=== PATIENT | male | born 1955 | race Caucasian/White ===

== ENCOUNTER 2018-10-02 09:54 | Observation (INO) ==
--- NOTE | 2018-10-02 10:07 | Anesthesia Evaluation PreOp ---
Date of Encounter: 10/02/18 Time of Encounter: 10:05 - Past History Planned Operation: Left Robotic Laproscopic Inguinal Hernia Cardiac History: HTN Pulmonary History: Denies Any Significant HX ACETYLENE TORCH BURNER History: Other (Depression/Anxiety) Other Medical History: Denies Any Significant HX, Thyroid (Hypo), Other (Obese, Chronic Pain) Anesthesia History: No Prior Anesthetic Complications, Past Anesthesia (loop recorder, pain pump and revision, GB, lumbar fusion, Hernia,) Alcohol Use: none Drug use: none Medications and Allergies Buspirone HCl [Buspar] 10 mg PO BID 10/02/18 [History] Gabapentin [Neurontin] 300 mg PO DAILY 10/02/18 [History] HydrOXYzine 10 mg PO Q8H PRN 10/02/18 [History] Levothyroxine Sodium [Levoxyl] 50 mcg PO DAILY 10/02/18 [History] Losartan Potassium 100 mg PO DAILY 10/02/18 [History] Meloxicam 7.5 mg PO BID 10/02/18 [History] Morphine Sulfate/Pf [Morphine IntraThecdal Pump] 1 each IT AD 10/02/18 [History] Pramipexole Di-HCl [Pramipexole Dihydrochloride] 0.75 mg PO HS 10/02/18 [History] Allergy/AdvReac Type Severity Reaction Status Date / Time bacitracin Allergy Hives Verified 10/02/18 10:21 [From Neosporin ([id number])] lisinopril Allergy Rash Verified 10/02/18 10:21 Neomycin Allergy Hives Verified 10/02/18 10:21 [From Neosporin ([id number])] polymyxin B Allergy Hives Verified 10/02/18 10:21 [From Neosporin ([id number])] ropinirole [From Requip] Allergy Hives Verified 10/02/18 10:21 Latex, Natural Rubber AdvReac Rash Verified 10/02/18 10:21 - Meds/Allergy Pre-op Review Medications Reviewed: Yes Allergies Reviewed: Yes Beta Blockers on Current Med List: No Anesthesia Results - Labs Laboratory Tests 06/24/17 06/24/17 09/22/18 07:25 07:26 13:42 WBC 6.5 Hgb 14.3 Hct 42.7 Plt Count 196 INR 1.0 Sodium 140 Potassium Chloride 100 Carbon Dioxide 33 H BUN 14 Creatinine 0.93 09/22/18 13:42 WBC Hgb Hct Plt Count INR Sodium Potassium 3.9 Chloride Carbon Dioxide BUN Creatinine - Imaging EKG: report reviewed (SR) Additional studies: Echocardiogram Name: Ishmael Alcaraz Date of Study: 06/24/2017 Impressions: LVEF 60-65%. Normal LV chamber size, wall thickness and function. Mild left ventricular diastolic dysfunction. Normal right ventricular structure and function. No evidence of pulmonary hypertension. No significant valvular dysfunction. Anesthesia Exam O2 Sat Height 1.75 m Weight 97.522 kg O2 Sat by Pulse Oximetry 97 Vital Signs Temp Pulse Resp BP Pulse Ox 98.6 F 63 18 151/77 97 10/02/18 10:10 10/02/18 10:10 10/02/18 10:10 10/02/18 10:10 10/02/18 10:10 NPO (# of Hours): > 8 hrs Pain Scale: 0 Pain Scale Used: Numeric (1 - 10) - HEENT Pupil (Motor): Pupils equal, EOMI Mallampati: III Teeth: Normal Oral Opening: Greater than 3 - ACETYLENE TORCH BURNER LOC: Oriented ACETYLENE TORCH BURNER Motor: Normal RUE, Normal LUE, Normal RLE, Normal LLE, Normal Face ACETYLENE TORCH BURNER Sensory: Normal: RUE, LUE, RLE, LLE, Face - Cardiac Rhythm: Regular Murmur: None JVD: No Carotid Bruit: No - Pulmonary Breath Sounds: bilateral Clear Respiratory Effort: Symmetrical Anesthesia Assess/Plan ASA Score: 3 Level of consciousness: Cooperative Anesthetic Plan: General Autologous Blood: Yes Monitoring Plan: Standard Monitors Recovery Plan: PACU
[2018-10-02] MEDS ORDERED: CeFAZolin Syr 2,000MG/20 ML 2,000 MG/20 ML SYRINGE IVPB ONE (10:12)
[2018-10-02] MEDS ORDERED: Ringers Solution, Lactated 1,000 ML IVC SCH ×2 (10:15→14:15)
[2018-10-02] MEDS ORDERED: Albuterol 2.5 MG/3 ML NEBULIZER IH ONE (10:31)
[2018-10-02] MEDS ORDERED: *HR* HYDROmorphone (PF) 1 MG/ML SYRINGE IVP PRN (10:31)
[2018-10-02] MEDS ORDERED: Ondansetron 4 MG/2 ML VIAL IVP ONE (10:31)
[2018-10-02] MEDS ORDERED: *HR* Promethazine 25 MG/ML VIAL IVP PRN ×3 (10:31→15:11)
[2018-10-02] MEDS ORDERED: *HR* Labetalol 20 MG/4 ML SYRINGE IVP PRN (10:31)
[2018-10-02] MEDS ORDERED: *HR* OxyCODONE Immed Rel 5 MG TABLET PO PRN (10:31)
[2018-10-02] MEDS ORDERED: Lidocaine -MPF 2% 2 ML VIAL ONE (11:25)
[2018-10-02] MEDS ORDERED: *HR* Rocuronium Bromide 50 MG/5 ML VIAL ONE (11:25)
[2018-10-02] MEDS ORDERED: *HR* Midazolam HCl 2 MG/2 ML VIAL ONE (11:25)
[2018-10-02] MEDS ORDERED: *HR* FentaNYL (PF) 100 MCG/2 ML VIAL ONE (11:25)
[2018-10-02] MEDS ORDERED: *HR* Propofol 200 MG/20 ML VIAL IVP ONE (11:25)
[2018-10-02] MEDS ORDERED: Acetaminophen IV 1,000 MG/100 ML INFUS..BTL ONE (11:31)
--- NOTE | 2018-10-02 11:41 | History & Physical Report ---
Date of Encounter: 10/02/18 Time of Encounter: 11:41 24 Hour HP Update - Instructions Instructions: If the History and Physical is less than 30 days old and was completed prior to A.M. admission and or procedure and has NOT been updated on calendar day of procedure please complete this update prior to performing procedure. - Update Patient reports changes in Medical Condition: No Changes in examination, assessment, or condition: No Changes in Medication: No Surgery Remains Indicated: Yes Consent for Planned Operative Procedure(s) Verified: Yes - Pre-Operative Checklist Prophylactic Antibiotic Ordered: Yes Home Medications Include Beta Clementina: No Is VTE Prophylaxis Indicated?: Yes
[2018-10-02] MEDS ORDERED: Dexamethasone 4 MG/ML VIAL ONE (12:06)
[2018-10-02] MEDS ORDERED: Ondansetron 4 MG/2 ML VIAL ONE (12:06)
[2018-10-02] MEDS ORDERED: Ketorolac 30 MG/ML VIAL ONE (12:11)
[2018-10-02] MEDS ORDERED: Neostigmine Methylsulfate 3 MG/3 ML SYRINGE ONE (12:11)
[2018-10-02] MEDS ORDERED: EPHEDrine 50 MG/ML VIAL ONE (12:13)
[2018-10-02] MEDS ORDERED: Piperacillin/Tazobactam 3.375 GM in 0.9 % Sodium Chloride Mini Bag 100 ML IVPB ONE (13:48)
[2018-10-02] MEDS ORDERED: Ondansetron 4 MG/2 ML VIAL IVP PRN ×2 (14:15→15:11)
[2018-10-02] MEDS ORDERED: Naloxone 0.4 MG/ML INJ IVP PRN ×2 (14:15→15:11)
[2018-10-02] MEDS ORDERED: *HR* OxyCODONE/APAP 5/325 TABLET PO PRN ×2 (14:18→15:11)
[2018-10-02] MEDS ORDERED: OXYCODONE Oral CONC 10 MG/0.5 ML ORAL.SYG SL PRN ×2 (14:18→15:11)
--- NOTE | 2018-10-02 14:22 | Operative Note ---
Date of procedure: 10/02/18 Pre-op diagnosis: left inguinal hernia Post-op diagnosis: same (direct and indirect, small bowel enterotomy) Procedure: Robotic repair left inguinal indirect and direct inguinal hernias with mesh repair small bowel enterotomy Anesthesia: MARRY, local Surgeon: Carla Hall Was there an finance assistant present: Yes Administration Intern: Pretty Espino Estimated blood loss (cc): 5 Specimen: none Condition: stable Disposition: PACU Procedure in Detail: Patient was brought to the operating suite and placed supine on the operating table. Sign in was performed and everyone was in agreement. Anesthesia was induced and patient was endotracheally intubated by anesthesia without incident. The bilateral arms were tucked at his side. His bilateral groin and abdomen was shaved. The bed was turned to the right ~15 degrees at the patients feet. The abdomen, bilateral groin, penis, and scrotum were prepped and draped in the usual sterile fashion. Timeout was performed again everyone was in agreement. A stab incision in the left upper quadrant was made through the skin with an 11 blade. Veress needle was placed in this and a water drop test confirmed placement and the abdomen was insufflated. We then entered the abdomen with a 5 mm 0 degree laparoscope and a 5 mm trocar in the left upper quadrant after first incising the skin with an 11 blade. The area under entry was visualized, there was no obvious bowel injury and no bleeding was present. We placed a 12 mm port under direct visualization in the subxiphoid position after first incising the skin with an 11 blade. We then placed a right upper quadrant 8 mm port under direct visualization after first incising the skin with an 11 blade. The laparoscope was placed through this and the left upper quadrant 5 mm port site was exchanged for the 8 mm port site. Patient was placed in Trendelenburg position. The robot was brought over the patient's left hip and all port sites were docked. Using robotic Caudie grasper and heated scissors an opening was made in the peritoneum medially to laterally in the left lower quadrant abdominal wall. Using gentle blunt dissection the peritoneal flap was created in a medial to lateral direction first locating and exposing the pubic tubercle. The patient had a large direct and smaller indirect inguinal fat containing hernias. The patients hernia sac was reduced with the robotic Caudie grasper and the heated scissors. The hernia sac was taken off the spermatic cord with gently blunt dissection with the scissors. A large piece of cord lipoma was dissected free from the hernia with heated scissors and placed on the small addison wel. Once an appropriate area was dissected and exposed in the retroperitoneum a trimmed 10 x 15 Progrip mesh was placed into the abdominal cavity along with a 0 Vicryl and a 2-0 Vicryl absorbable V-lock stitches. The mesh was placed in the left groin and secured with 2 separate 0 Vicryl interrupted stitches superiolaterally and at the pubic tubercle. The a 2-0 V-lock running stitch was used to reapproximate the peritoneal flap. A hole in the peritoneal was closed with a figure of eight 2-0 vicryl. The previously dissected fat was grasped with the needle school bus driver/teacher assistant and the corner of the needle school bus driver/teacher assistant caught the edge of the small bowel. There was a small enterotomy in the small bowel. The enterotomy was repaired in two layers first with a 3-0 vicryl figure of eight stitch then 3-0 silk lembert stitches. There was no leakage of succus or contamination. The All needles were removed from the peritoneal cavity. The previously dissected fat was removed with a laparoscopic endocatch bag. The insufflation was evacuated and all trocoars were removed. The 12 mm port site was closed at the abdominal wall with an 0 Vicryl [id number] stitch. 30 mL of 0.5% Marcaine was injected subcutaneously at the 3 port sites. The skin at the two 8 mm port sites was closed with a 4-0 Monocryl running subcuticular stitch. The skin at the 12 mm port site was closed with a 4-0 Monocryl running subcuticular stitch. Steri-Strips were applied to the wounds. The patient tolerated the procedure well. He was extubated in the OR by anesthesia. He was taken to PACU in stable condition after all lap and instrument counts were correct at the end of the case.
[2018-10-02] MEDS ORDERED: [UNRECOGNIZED DRUG - OTHER] IT SCH (14:30)
--- NOTE | 2018-10-02 14:56 | Anesthesia Evaluation Post Op ---
Date of Encounter: 10/02/18 Time of Encounter: 14:50 - Vital Signs Vital Signs: Vital Signs/O2 Sat/Glucose, Most Current Temp Pulse Resp BP Pulse Ox 10/02/18 14:47 66 14 138/75 94 10/02/18 14:37 64 14 137/70 96 10/02/18 14:27 97.9 F 81 16 141/81 99 - Lungs Lungs: Clear Ascult./Percussion - Airway Airway: Non-obstructed - Cardiovascular Regular Rate - Mental Status Mental Status: Alert & Oriented, Answers Appropriately - Pain Pain Scale: 0 - Nausea Vomiting Nausea Vomiting: Not Present - Hydration Hydration: Ice chips, Has not voided - Discharge PostOp Status: Transfer Patient to floor (no anesthesia complications VSS)
[2018-10-02] MEDS ORDERED: Piperacillin/Tazobactam 3.375 GM in 0.9 % Sodium Chloride Mini Bag 100 ML IVPB SCH (16:00)
[2018-10-02] MEDS ORDERED: *HR* Metoprolol 5 MG/5 ML VIAL IVP PRN (16:28)
[2018-10-02] MEDS: Ringers Solution, Lactated 1,000 ML IVC SCH ×2 (18:35→19:55)
[2018-10-02] MEDS ORDERED: PRAMIPEXOLE DI HCL PO SCH (21:00)
[2018-10-02] MEDS ORDERED: NON-FORMULARY MEDICATION 1 EACH EACH (Buspirone Hcl [Buspar] 10 MG) PO SCH (21:00)
[2018-10-02] MEDS: Piperacillin/Tazobactam 3.375 GM in 0.9 % Sodium Chloride Mini Bag 100 ML IVPB SCH (21:56)
[2018-10-03] MEDS: Piperacillin/Tazobactam 3.375 GM in 0.9 % Sodium Chloride Mini Bag 100 ML IVPB SCH ×3 (05:27→22:51)
[2018-10-03] MEDS: Ringers Solution, Lactated 1,000 ML IVC SCH ×2 (05:30→15:12)
[2018-10-03] MEDS: MORPHINE SULFATE IT SCH ×2 (07:21→15:13)
[2018-10-03 08:21] LABS: Basophils % 0.2 %; Hematocrit 37.8 % (37.5-50.1); Hemoglobin 12.8 g/dL (12.9-16.9); Immature Granulocytes % 0.6 % (0-4); Lymphocytes # 0.9 K/mcL (0.6-4.6); Lymphocytes % 10.9 %; Mean Corpuscular HGB Conc 33.9 g/dL (31.6-35.5); Mean Corpuscular Hemoglobin 29.5 pg (28.0-33.3); Mean Corpuscular Volume 87.1 fL (83.0-100.0); Mean Platelet Volume 8.8 fL (9.4-12.4); Monocytes # 0.5 K/mcL (0.0-1.3); Monocytes % 5.6 %; Platelet Count 130 K/mcL (140-400); Red Blood Count 4.34 M/mcL (4.19-5.50); Red Cell Distribution Width 12.5 % (11.5-14.5); Segmented Neutrophils % 82.7 %
[2018-10-03 08:40] LABS: BUN/Creatinine Ratio 17 (6-26); Blood Urea Nitrogen 20 mg/dL (8-23); Calcium 9.5 mg/dL (8.6-10.3); Carbon Dioxide 29 mEq/L (23-29); Chloride 104 mEq/L (98-107); Glucose 123 mg/dL (70-105); Magnesium 2.2 mg/dL (1.6-2.6); Osmolality,Calculated 294 (280-300); Phosphorous 4.5 mg/dL (2.7-4.5); Potassium 4.5 mEq/L (3.5-5.1); Sodium 140 mEq/L (136-145); eGFR For Non-African Americans > 60 (> 60)
[2018-10-03] MEDS ORDERED: Gabapentin 300 MG CAPSULE PO SCH (09:00)
[2018-10-03] MEDS ORDERED: Pantoprazole 40 MG VIAL IVP SCH (09:00)
[2018-10-03] MEDS ORDERED: LOSARTAN POTASSIUM 100 MG PO SCH (09:00)
[2018-10-03] MEDS: Gabapentin 300 MG CAPSULE PO SCH (10:43)
[2018-10-03] MEDS: Pantoprazole 40 MG VIAL IVP SCH (10:43)
--- NOTE | 2018-10-03 12:38 | General Surgery Progress Note ---
<MackRosa Maria - Last Filed: 10/03/18 12:35> Date of Encounter: 10/03/18 Time of Encounter: 08:00 - Assessment and Plan (1) Left inguinal hernia Current Visit: Yes Status: Acute Date of procedure: 10/02/18 Pre-op diagnosis: left inguinal hernia Post-op diagnosis: same (direct and indirect, small bowel enterotomy) Procedure: Robotic repair left inguinal indirect and direct inguinal hernias with mesh repair small bowel enterotomy Anesthesia: GETA, local Surgeon: Carla Hall POD #1 as above. Pt is recovering well. No s/s of leakage. His pain is minimal and he has funciton. We will start clears today and continue to observe. Plan: clear liquid diet, no carbonation continue supportive care and discomfort management while awaiting full return of bowel function serial abdominal exams repeat a.m. labs EP CDs incentive spirometry ambulate TID, january saline lock IV to ambulate out of bed to chair TID continue G.I. and DVT prophylaxis (2) Anxiety Current Visit: Yes Status: Acute Continue home medications (3) Chronic pain Current Visit: Yes Status: Chronic Chronic pain pump in place. Patient states he has an appointment on 10/05/2017 for this to get refilled with morphine. Qualifiers: Chronic pain type: other chronic pain Qualified Code(s): G89.29 - Other chronic pain (4) Chronic anticoagulation Current Visit: Yes Status: Acute Patient was previously on Xarelto for chronic anticoagulation d/t a-fib. He ran out of anticoagulation in August and has not resumed anticoagulation. Also noted he has a loop recorder implanted and has follow-up with Dr. Rodriguez in late October. This appointment will likely need to be moved up due to his lack of anticoagulation. (5) Atrial fibrillation Current Visit: Yes Status: Acute RRR at this time. Continue to monitor Qualifiers: Atrial fibrillation type: paroxysmal Qualified Code(s): I48.0 - Paroxysmal atrial fibrillation Subjective Patient reports: no new complaints, pain is less, voiding w/o difficulty, flatus, no bowel movement, shortness of breath Objective Vital Signs - Last 8 Hours Temp Pulse Resp BP Pulse Ox 10/03/18 11:58 98.2 F 62 18 129/66 93 10/03/18 10:53 99 10/03/18 07:15 98.1 F 56 18 113/67 99 Intake and Output 10/02/18 10/03/18 10/03/18 23:59 07:59 15:59 Intake Total 1030 / 1030 1100 / 1100 0 / 0 Output Total 200 / 200 500 / 500 350 / 350 Balance 830 / 830 600 / 600 -350 / -350 Intake: IV Fluids 1000 / 1000 1100 / 1100 Lactated Ringers 1,000 ML @ 100 1000 / 1000 1000 / 1000 mls/hr IVC .Q10H [facility] Rx#: [id number] Zosyn 3.375 GM In 0.9 % Sodium 100 / 100 Chloride (Mini-Bag +) 100 ML @ 25 mls/hr IVPB Q8H [facility] Rx#: [id number] Oral 30 / 30 0 / 0 0 / 0 Output: Urine 200 / 200 500 / 500 350 / 350 Other: Meal NPO Percent of Meal Consumed 0% Weight 97.6 kg Blood Glucose* 135 Patient Weight 10/03/18 23:59 Weight 97.6 kg - General physical appearance no distress, moderate pain (mild to moderate with movement) - Eyes normal ocular movement - ENT normal nares, atraumatic, normocephalic - Neck Neck exam: trachea midline - Respiratory normal expansion, normal respiratory effort, clear to auscultation - Cardiovascular Cardiovascular exam: Present: RRR - Abdomen Abdomen: Present: bowel sounds present, soft, tender (Expected postoperative) Hernia: none - Incision Incision: Present: clean and dry, intact - Integumentary no rash - Neurologic normal coordination, normal sensation - Musculoskeletal normal gait, normal posture - Psychiatric oriented to time, oriented to person, oriented to place, speech is normal, memory intact - Labs 10/03/18 08:03 10/03/18 08:03 Diabetes panel 10/03/18 Range/Units 08:03 Sodium 140 (136-145) mEq/L Potassium 4.5 (3.5-5.1) mEq/L Chloride 104 (98-107) mEq/L Carbon Dioxide 29 (23-29) mEq/L BUN 20 (8-23) mg/dL Creatinine 1.21 (0.70-1.30) mg/dL Glucose 123 H (70-105) mg/dL Calcium 9.5 (8.6-10.3) mg/dL Calcium panel 10/03/18 Range/Units 08:03 Calcium 9.5 (8.6-10.3) mg/dL Phosphorus 4.5 (2.7-4.5) mg/dL Pituitary panel 10/03/18 Range/Units 08:03 Sodium 140 (136-145) mEq/L Potassium 4.5 (3.5-5.1) mEq/L Chloride 104 (98-107) mEq/L Carbon Dioxide 29 (23-29) mEq/L BUN 20 (8-23) mg/dL Creatinine 1.21 (0.70-1.30) mg/dL Glucose 123 H (70-105) mg/dL Calcium 9.5 (8.6-10.3) mg/dL Adrenal panel 10/03/18 Range/Units 08:03 Sodium 140 (136-145) mEq/L Potassium 4.5 (3.5-5.1) mEq/L Chloride 104 (98-107) mEq/L Carbon Dioxide 29 (23-29) mEq/L BUN 20 (8-23) mg/dL Creatinine 1.21 (0.70-1.30) mg/dL Glucose 123 H (70-105) mg/dL Calcium 9.5 (8.6-10.3) mg/dL Consult Discharge Plan - Plan Instructions: Laparoscopic Herniorrhaphy (DC) Additional Instructions: General Surgical Discharge Instructions 1. No pushing, pulling, or lifting greater than 15 lbs for 4 weeks. 2. You may shower beginning today, but no tub baths, soaking, or swimming for 2 weeks. 3. You may resume driving when you are off narcotics and are safe to react in a car. 4. Pain is in place. Keep your appointment for chronic pain management. 5. Take stool softeners (Colace) or a water based laxative (Miralax) while taking narcotics. You may hold for loose stools. 6. Report any fevers greater than 100.5F, increase abdominal discomfort, drainage that looks like pus, increased redness or pain at the surgical site, or any vomiting. 7. Report any pain in the calves, shortness of breath, or rapid heartbeat. 8. Follow-up in the office as directed. 9. If you were prescribed antibiotics, do not stop them without talking to your provider. Follow-up with Dr. El as recommended, Since you have been off your Anticoagulatio since August, you will need to see Dr. El prior to restarting. Referrals: Carla Hall MD [Partnered Physician] - 10/18/18 2:50 pm Jayme Capone DO [Primary Care Provider] - Jonathon Rodriguez MD [Partnered Physician] - (appointment inlate October. This may need moved up to aprox 1 week after d/c d/t pt is not taking Anticoagualtion b/c her "ran out.") <Carla Hall - Last Filed: 10/04/18 13:21> Date of Encounter: 10/03/18 Time of Encounter: 11:35 - Assessment and Plan (1) Left inguinal hernia Current Visit: Yes Status: Acute start clears trend labs continue zosyn prn pain controlled well OOB ambulate gi/dvt prophylaxis start anticoagulation in 48 hrs ok home meds Subjective Patient reports: still having pain, pain is less, voiding w/o difficulty, flatus, no bowel movement, afebrile Objective Vital Signs - Last 8 Hours Temp Pulse Resp BP Pulse Ox 10/04/18 09:59 98.6 F 66 15 144/78 94 10/04/18 06:27 98.2 F 57 15 137/70 93 Intake and Output 10/03/18 10/04/18 10/04/18 23:59 07:59 15:59 Intake Total 580 / 580 100 / 100 1295 / 1295 Output Total 550 / 550 625 / 625 300 / 300 Balance -525 / -525 995 / 995 Intake: IV Fluids 100 / 100 100 / 100 1175 / 1175 Lactated Ringers 1,000 ML @ 100 1075 / 1075 mls/hr IVC .Q10H [facility] Rx#: [id number] Zosyn 3.375 GM In 0.9 % Sodium 100 / 100 100 / 100 100 / 100 Chloride (Mini-Bag +) 100 ML @ 25 mls/hr IVPB Q8H [facility] Rx#: [id number] Oral 480 / 480 0 / 0 120 / 120 Output: Urine 550 / 550 625 / 625 300 / 300 Other: Meal Lunch Percent of Meal Consumed 5% Weight 97.3 kg Patient Weight 10/04/18 23:59 Weight 97.3 kg - General physical appearance well nourished, no distress, moderate pain - Eyes normal ocular movement - ENT normal mucosa, normocephalic - Abdomen Abdomen: Present: bowel sounds present, soft, tender. Absent: guarding, rebound - Incision Incision: Present: clean and dry, intact - Integumentary no rash - Neurologic normal sensation - Musculoskeletal normal posture - Psychiatric oriented to time, oriented to person, oriented to place, speech is normal, memory intact - Labs 10/04/18 09:05 10/04/18 08:22 Diabetes panel 10/04/18 Range/Units 08:22 Sodium 141 (136-145) mEq/L Potassium 3.8 (3.5-5.1) mEq/L Chloride 109 H (98-107) mEq/L Carbon Dioxide 18 L (23-29) mEq/L BUN 15 (8-23) mg/dL Creatinine 1.13 (0.70-1.30) mg/dL Glucose 101 (70-105) mg/dL Calcium 9.2 (8.6-10.3) mg/dL Calcium panel 10/04/18 Range/Units 08:22 Calcium 9.2 (8.6-10.3) mg/dL Pituitary panel 10/04/18 Range/Units 08:22 Sodium 141 (136-145) mEq/L Potassium 3.8 (3.5-5.1) mEq/L Chloride 109 H (98-107) mEq/L Carbon Dioxide 18 L (23-29) mEq/L BUN 15 (8-23) mg/dL Creatinine 1.13 (0.70-1.30) mg/dL Glucose 101 (70-105) mg/dL Calcium 9.2 (8.6-10.3) mg/dL Adrenal panel 10/04/18 Range/Units 08:22 Sodium 141 (136-145) mEq/L Potassium 3.8 (3.5-5.1) mEq/L Chloride 109 H (98-107) mEq/L Carbon Dioxide 18 L (23-29) mEq/L BUN 15 (8-23) mg/dL Creatinine 1.13 (0.70-1.30) mg/dL Glucose 101 (70-105) mg/dL Calcium 9.2 (8.6-10.3) mg/dL - Attending Attestation I have personally performed a face to face evaluation on this patient. I have reviewed and agree with the care plan. History and Exam by me shows:
[2018-10-04] MEDS: Piperacillin/Tazobactam 3.375 GM in 0.9 % Sodium Chloride Mini Bag 100 ML IVPB SCH ×3 (05:37→21:53)
[2018-10-04] MEDS: Pantoprazole 40 MG VIAL IVP SCH (08:54)
[2018-10-04] MEDS: Gabapentin 300 MG CAPSULE PO SCH (08:54)
[2018-10-04 09:14] LABS: Basophils % 0.6 %; Eosinophils # 0.3 K/mcL (0.0-0.6); Eosinophils % 3.6 %; Hematocrit 37.2 % (37.5-50.1); Hemoglobin 12.5 g/dL (12.9-16.9); Immature Granulocytes % 0.4 % (0-4); Lymphocytes # 1.4 K/mcL (0.6-4.6); Lymphocytes % 19.8 %; Mean Corpuscular HGB Conc 33.6 g/dL (31.6-35.5); Mean Corpuscular Hemoglobin 29.9 pg (28.0-33.3); Mean Platelet Volume 8.9 fL (9.4-12.4); Monocytes # 0.4 K/mcL (0.0-1.3); Monocytes % 5.9 %; Neutrophils # 4.9 K/mcL (1.6-8.9); Platelet Count 135 K/mcL (140-400); Red Blood Count 4.18 M/mcL (4.19-5.50); Red Cell Distribution Width 12.8 % (11.5-14.5); Segmented Neutrophils % 69.7 %
[2018-10-04 10:19] LABS: BUN/Creatinine Ratio 13 (6-26); Blood Urea Nitrogen 15 mg/dL (8-23); Calcium 9.2 mg/dL (8.6-10.3); Carbon Dioxide 18 mEq/L (23-29); Chloride 109 mEq/L (98-107); Glucose 101 mg/dL (70-105); Osmolality,Calculated 293 (280-300); Potassium 3.8 mEq/L (3.5-5.1); Sodium 141 mEq/L (136-145); eGFR For Non-African Americans > 60 (> 60)
[2018-10-04] MEDS: Ringers Solution, Lactated 1,000 ML IVC SCH (12:29)
[2018-10-04] MEDS: MORPHINE SULFATE IT SCH (14:15)
--- NOTE | 2018-10-04 16:06 | General Surgery Progress Note ---
Date of Encounter: 10/04/18 Time of Encounter: 12:30 - Assessment and Plan (1) Left inguinal hernia Current Visit: Yes Status: Acute tolerated fulls, start regular diet trend labs continue zosyn, plan cipro/flagyl upon dc prn pain controlled well OOB ambulate gi/dvt prophylaxis start anticoagulation in 24 ok home meds sliv ok to shower Subjective Patient reports: no new complaints, feels better, still having pain, pain is less, tolerating liquids well, flatus, no bowel movement, afebrile Objective Vital Signs - Last 8 Hours Temp Pulse Resp BP Pulse Ox 10/04/18 14:35 98.3 F 73 15 143/73 95 10/04/18 09:59 98.6 F 66 15 144/78 94 Intake and Output 10/04/18 10/04/18 10/04/18 07:59 15:59 23:59 Intake Total 100 / 100 1415 / 1415 Output Total 625 / 625 500 / 500 Balance -525 / -525 915 / 915 Intake: IV Fluids 100 / 100 1175 / 1175 Lactated Ringers 1,000 ML @ 100 1075 / 1075 mls/hr IVC .Q10H [facility] Rx#: [id number] Zosyn 3.375 GM In 0.9 % Sodium 100 / 100 100 / 100 Chloride (Mini-Bag +) 100 ML @ 25 mls/hr IVPB Q8H [facility] Rx#: [id number] Oral 0 / 0 240 / 240 Output: Urine 625 / 625 500 / 500 Other: Meal Lunch Percent of Meal Consumed 5% Weight 97.3 kg Patient Weight 10/04/18 23:59 Weight 97.3 kg - General physical appearance well developed, well nourished, no distress - Eyes normal ocular movement - ENT normal mucosa, normocephalic - Neck Neck exam: trachea midline - Respiratory normal expansion, clear to auscultation - Cardiovascular Cardiovascular exam: Present: RRR - Abdomen Abdomen: Present: bowel sounds present, soft, tender (appropriate post op tenderness). Absent: guarding, rebound - Incision Incision: Present: clean and dry, intact - Integumentary no rash, no growths - Neurologic CN 2-12 grossly intact - Musculoskeletal normal posture - Psychiatric oriented to time, oriented to person, speech is normal - Labs 10/04/18 09:05 10/04/18 08:22 Diabetes panel 10/04/18 Range/Units 08:22 Sodium 141 (136-145) mEq/L Potassium 3.8 (3.5-5.1) mEq/L Chloride 109 H (98-107) mEq/L Carbon Dioxide 18 L (23-29) mEq/L BUN 15 (8-23) mg/dL Creatinine 1.13 (0.70-1.30) mg/dL Glucose 101 (70-105) mg/dL Calcium 9.2 (8.6-10.3) mg/dL Calcium panel 10/04/18 Range/Units 08:22 Calcium 9.2 (8.6-10.3) mg/dL Pituitary panel 10/04/18 Range/Units 08:22 Sodium 141 (136-145) mEq/L Potassium 3.8 (3.5-5.1) mEq/L Chloride 109 H (98-107) mEq/L Carbon Dioxide 18 L (23-29) mEq/L BUN 15 (8-23) mg/dL Creatinine 1.13 (0.70-1.30) mg/dL Glucose 101 (70-105) mg/dL Calcium 9.2 (8.6-10.3) mg/dL Adrenal panel 10/04/18 Range/Units 08:22 Sodium 141 (136-145) mEq/L Potassium 3.8 (3.5-5.1) mEq/L Chloride 109 H (98-107) mEq/L Carbon Dioxide 18 L (23-29) mEq/L BUN 15 (8-23) mg/dL Creatinine 1.13 (0.70-1.30) mg/dL Glucose 101 (70-105) mg/dL Calcium 9.2 (8.6-10.3) mg/dL Consult Discharge Plan - Plan Instructions: Laparoscopic Herniorrhaphy (DC) Additional Instructions: General Surgical Discharge Instructions 1. No pushing, pulling, or lifting greater than 15 lbs for 4 weeks. 2. You may shower beginning today, but no tub baths, soaking, or swimming for 2 weeks. 3. You may resume driving when you are off narcotics and are safe to react in a car. 4. Pain is in place. Keep your appointment for chronic pain management. 5. Take stool softeners (Colace) or a water based laxative (Miralax) while taking narcotics. You may hold for loose stools. 6. Report any fevers greater than 100.5F, increase abdominal discomfort, drainage that looks like pus, increased redness or pain at the surgical site, or any vomiting. 7. Report any pain in the calves, shortness of breath, or rapid heartbeat. 8. Follow-up in the office as directed. 9. If you were prescribed antibiotics, do not stop them without talking to your provider. Follow-up with Dr. El as recommended, Since you have been off your Anticoagulatio since August, you will need to see Dr. El prior to restarting. Referrals: Carla Hall MD [Partnered Physician] - 10/18/18 2:50 pm Jayme Capone DO [Primary Care Provider] - Jonathon Rodriguez MD [Partnered Physician] - (appointment inlate October. This may need moved up to aprox 1 week after d/c d/t pt is not taking Anticoagualtion b/c her "ran out.")
[2018-10-05 05:26] LABS: Basophils % 0.6 %; Eosinophils # 0.4 K/mcL (0.0-0.6); Eosinophils % 5.7 %; Hemoglobin 11.6 g/dL (12.9-16.9); Immature Granulocytes % 0.3 % (0-4); Lymphocytes # 1.3 K/mcL (0.6-4.6); Lymphocytes % 21.1 %; Mean Corpuscular HGB Conc 34.1 g/dL (31.6-35.5); Mean Corpuscular Hemoglobin 29.7 pg (28.0-33.3); Mean Corpuscular Volume 87.2 fL (83.0-100.0); Mean Platelet Volume 8.9 fL (9.4-12.4); Monocytes # 0.5 K/mcL (0.0-1.3); Monocytes % 7.7 %; Neutrophils # 4.1 K/mcL (1.6-8.9); Platelet Count 131 K/mcL (140-400); Segmented Neutrophils % 64.6 %
[2018-10-05] MEDS: Piperacillin/Tazobactam 3.375 GM in 0.9 % Sodium Chloride Mini Bag 100 ML IVPB SCH (05:47)
[2018-10-05 07:39] VITALS: BP 156/74
[2018-10-05] MEDS: Gabapentin 300 MG CAPSULE PO SCH (07:45)
[2018-10-05] MEDS: Pantoprazole 40 MG VIAL IVP SCH (07:46)
--- NOTE | 2018-10-05 09:00 | Discharge Summary ---
- NOTES TO OUTPATIENT PROVIDER Notes to Outpatient Provider: Dr. El: appointment in late October. Advised patient this may need moved up d/t pt is not taking Anticoagualtion b/c he "ran out and can't afford it without the deductible met." Date of Encounter: 10/05/18 Time of Encounter: 09:01 - Discharge Diagnosis (1) Left inguinal hernia Priority: Primary Status: Acute (2) Anxiety Priority: Secondary Status: Acute (3) Chronic pain Priority: Secondary Status: Chronic Qualifiers: Chronic pain type: other chronic pain Qualified Code(s): G89.29 - Other chronic pain (4) Chronic anticoagulation Priority: Secondary Status: Acute (5) Atrial fibrillation Priority: Secondary Status: Acute Qualifiers: Atrial fibrillation type: paroxysmal Qualified Code(s): I48.0 - Paroxysmal atrial fibrillation General Surgery Exam Initial Vital Signs Temp Pulse Resp BP Pulse Ox 98.6 F 63 18 151/77 97 10/02/18 10:10 10/02/18 10:10 10/02/18 10:10 10/02/18 10:10 10/02/18 10:10 Vital Signs Temp Pulse Resp BP Pulse Ox 10/05/18 07:30 98.3 F 56 15 156/74 96 10/05/18 03:32 98.9 F 62 16 162/85 94 10/04/18 17:55 98.6 F 71 18 141/90 96 10/04/18 14:35 98.3 F 73 15 143/73 95 10/04/18 09:59 98.6 F 66 15 144/78 94 Intake and Output 10/04/18 10/05/18 10/05/18 23:59 07:59 15:59 Intake Total 340 / 340 100 / 100 Output Total 200 / 200 500 / 500 Balance 140 / 140 -400 / -400 Intake: IV Fluids 100 / 100 100 / 100 Zosyn 3.375 GM In 0.9 % Sodium 100 / 100 100 / 100 Chloride (Mini-Bag +) 100 ML @ 25 mls/hr IVPB Q8H [facility] Rx#: [id number] Oral 240 / 240 0 / 0 Output: Urine 200 / 200 500 / 500 Other: Meal Dinner Percent of Meal Consumed 95% Weight 97.6 kg Patient Weight 10/05/18 23:59 Weight 97.6 kg VITAL SIGNS: Reviewed. See [facility] GENERAL: In no apparent distress. HEENT: Normocephalic, atraumatic, pupils are equal and reactive, extraocular motions intact, oropharynx is pink and moist, there is no neck adenopathy or JVD noted. CHEST/RESPIRATORY: The thorax is free from signs of trauma. Lung sounds: clear to auscultation, normal respiratory effort CARDIAC: Regular rate and rhythm. Normal S1 and S2, without murmurs, gallops, or rubs. VASCULAR: No Edema. 2+ peripheral pulses. ABDOMEN: soft, expected postoperative tenderness, active bowel sounds, positive bowel function INCISION: Surgical incision is clean, dry, and intact. There are no signs of cellulitis or infection noted. MUSCULOSKELETAL: Good range of motion of all major joints. Extremities without clubbing, cyanosis or edema. NEUROLOGIC EXAM: Alert and oriented x 3. Speech normal. Follows commands. PSYCHIATRIC: Mood normal. SKIN: No rash or lesions. - Hospital Course Hospital course: Mr. Alcaraz is a 62 year old male who presented on 10/01/2018 for robotic left inguinal hernia repair with mesh with Dr. Hall. His operative course was complicated by a small bowel enterotomy which was repaired. His hospital course has been uncomplicated. He is ambulating avoiding without difficulty, tolerating a diet without nausea or vomiting, vital signs are stable, and he is afebrile. We will begin discharge planning to home with a follow-up in the office in approximately 2 weeks. Of note, patient reports he has not taken his anticoagulation(Xarelto) since August because he ran out due to inability to afford to medication when his deductible was not met. He reports he has an appointment coming up with Dr. Rodriguez in late October. We have asked the munitions factory worker to reach out to Dr. Rodriguez's office to move this this appointment up so that the patient may obtain anticoagulation that he reports he can afford. Pt states he has called the office to request a refill. He also notes a chronic pain pump for which he has an appointment today to get refilled. He is therefor provided with limited narcotics and advised to stop once pump is refilled. - Time Spent with Patient Total time spent providing and/or coordinating discharge services: - Discharge Medications Prescriptions: Ondansetron ODT [Zofran ODT] 4 mg SL Q4HR PRN #15 tab.rapdis PRN Reason: Postsurgical nausea OxyCODONE/APAP 5/325 [Percocet 5/325 MG] 1 each PO Q6HR PRN 3 Days #18 tablet PRN Reason: Pain Ciprofloxacin [Cipro] 500 mg PO BID 7 Days #14 tablet Docusate Sodium [Colace] 100 mg PO BID PRN #30 capsule PRN Reason: Contstipation metroNIDAZOLE [Flagyl] 500 mg PO TID 7 Days #21 tablet Home Medications: Buspirone HCl [Buspar] 10 mg PO BID 10/02/18 [History] Gabapentin [Neurontin] 300 mg PO DAILY 10/02/18 [History] HydrOXYzine 10 mg PO Q8H PRN 10/02/18 [History] Levothyroxine Sodium [Levoxyl] 50 mcg PO DAILY 10/02/18 [History] Losartan Potassium 100 mg PO DAILY 10/02/18 [History] Meloxicam 7.5 mg PO BID 10/02/18 [History] Morphine Sulfate/Pf [Morphine IntraThecdal Pump] 1 each IT AD 10/02/18 [History] Pramipexole Di-HCl [Pramipexole Dihydrochloride] 0.75 mg PO HS 10/02/18 [History] Ciprofloxacin [Cipro] 500 mg PO BID 7 Days #14 tablet 10/05/18 [Rx] Docusate Sodium [Colace] 100 mg PO BID PRN #30 capsule 10/05/18 [Rx] Ondansetron ODT [Zofran ODT] 4 mg SL Q4HR PRN #15 tab.rapdis 10/05/18 [Rx] OxyCODONE/APAP 5/325 [Percocet 5/325 MG] 1 each PO Q6HR PRN 3 Days #18 tablet 10/05/18 [Rx] metroNIDAZOLE [Flagyl] 500 mg PO TID 7 Days #21 tablet 10/05/18 [Rx] Allergies/Adverse Reactions: Allergy/AdvReac Type Severity Reaction Status Date / Time bacitracin Allergy Hives Verified 10/02/18 10:21 [From Neosporin ([id number])] lisinopril Allergy Rash Verified 10/02/18 10:21 Neomycin Allergy Hives Verified 10/02/18 10:21 [From Neosporin ([id number])] polymyxin B Allergy Hives Verified 10/02/18 10:21 [From Neosporin ([id number])] ropinirole [From Requip] Allergy Hives Verified 10/02/18 10:21 Latex, Natural Rubber AdvReac Rash Verified 10/02/18 10:21 Date of admission: 10/05/18 08:00 Primary care physician: Jayme Capone DO Consults: 10/02/18 18:43 Consult to Nutrition [CONS] Routine Comment: Consulting Provider: NUTRITION Reason for Dietary Consult: MST Score Discharging clinician: Rosa Maria Giron Anticipated date of discharge: 10/05/18 Labs on day of discharge: Labs from last 24 hours 10/05/18 10/04/18 10/04/18 05:10 09:05 08:22 WBC 6.3 7.0 RBC 3.90 L 4.18 L Hgb 11.6 L 12.5 L Hct 34.0 L 37.2 L MCV 87.2 89.0 MCH 29.7 29.9 MCHC 34.1 33.6 RDW 13.0 12.8 Plt Count 131 L 135 L MPV 8.9 L 8.9 L Immature Gran % 0.3 0.4 Seg Neutrophils % 64.6 69.7 Lymphocytes % 21.1 19.8 Monocytes % 7.7 5.9 Eosinophils % 5.7 3.6 Basophils % 0.6 0.6 Neutrophils # 4.1 4.9 Lymphocytes # 1.3 1.4 Monocytes # 0.5 0.4 Eosinophils # 0.4 0.3 Basophils # 0.0 0.0 Sodium 141 Potassium 3.8 Chloride 109 H Carbon Dioxide 18 L BUN 15 Creatinine 1.13 Est GFR ( Amer) > 60 Est GFR (Non-Af Amer) > 60 BUN/Creatinine Ratio 13 Glucose 101 Calculated Osmolality 293 Calcium 9.2 - Patient Status Disposition: Home, Self-Care Condition: Good Functional capacity at discharge: independent ambulation Overall status at discharge: patient is progressing back to baseline - Discharge Instructions Instructions: Laparoscopic Herniorrhaphy (DC) Follow Up With: Carla Hall MD [Partnered Physician] - 10/18/18 2:50 pm Jayme Capone DO [Primary Care Provider] - Jonathon Rodriguez MD [Partnered Physician] - (appointment in late October. This may need moved up to aprox 1 week after d/c d/t pt is not taking Anticoagualtion b/c he "ran out and can't afford it without the deductible met.") Additional Instructions: General Surgical Discharge Instructions 1. No pushing, pulling, or lifting greater than 15 lbs for 4 weeks. 2. You may shower beginning today, but no tub baths, soaking, or swimming for 2 weeks. 3. You may resume driving when you are off narcotics and are safe to react in a car. 4. Pain pump is in place. Do not take oxycodone once you have your morphine pump refilled. Keep your appointment for chronic pain management. 5. Take stool softeners (Colace) or a water based laxative (Miralax) while taking narcotics. You may hold for loose stools. 6. Report any fevers greater than 100.5F, increase abdominal discomfort, drainage that looks like pus, increased redness or pain at the surgical site, or any vomiting. 7. Report any pain in the calves, shortness of breath, or rapid heartbeat. 8. Follow-up in the office as directed. 9. If you were prescribed antibiotics, do not stop them without talking to your provider. Follow-up with Dr. El as recommended, Since you have been off your Anticoagulation since August, you will need to see Dr. El prior to restarting. - Diet and Activity Activity: increase activity as tolerated Diet: advance to your usual diet
== END 2018-10-05 11:35 | disposition home or self-care (01) ==
LOC: 3ANU 09:54 → SAMDAY 09:54 → 3ANU 14:56
PROVIDERS: ADMIT Surgery; ATTEND Surgery

== ENCOUNTER 2020-03-07 09:15 | Inpatient (IN) ==
[2020-03-07] MEDS ORDERED: Ringers Solution, Lactated 1,000 ML IVC SCH ×2 (09:30→13:32)
[2020-03-07] MEDS ORDERED: CeFAZolin Syr 2,000MG/20 ML 2,000 MG/20 ML SYRINGE IVPB ONE (09:30)
[2020-03-07] MEDS ORDERED: Ondansetron 4 MG/2 ML VIAL IVP ONE (10:05)
[2020-03-07] MEDS ORDERED: *HR* HYDROmorphone PF 0.5 MG/0.5 ML SYRINGE IVP PRN (10:05)
[2020-03-07] MEDS ORDERED: *HR* OxyCODONE Immed Rel 5 MG TABLET PO PRN ×2 (10:05→13:32)
[2020-03-07] MEDS ORDERED: *HR* Promethazine 25 MG/ML VIAL IVP PRN (10:05)
[2020-03-07] MEDS ORDERED: Acetaminophen IV 1,000 MG/100 ML INFUS..BTL IVPB ONE (10:08)
[2020-03-07] MEDS ORDERED: *HR* FentaNYL (PF) 100 MCG/2 ML VIAL ONE (10:10)
[2020-03-07] MEDS ORDERED: Lidocaine -MPF 2% 2 ML VIAL ONE (10:10)
[2020-03-07] MEDS ORDERED: *HR* Midazolam HCl 2 MG/2 ML VIAL ONE (10:10)
[2020-03-07] MEDS ORDERED: Dexamethasone 4 MG/ML VIAL ONE ×2 (10:10→11:52)
[2020-03-07] MEDS ORDERED: *HR* Propofol 200 MG/20 ML VIAL IVP ONE (10:10)
[2020-03-07] MEDS ORDERED: *HR* Succinylcholine 200 MG/10 ML VIAL IVP ONE (10:10)
[2020-03-07] MEDS ORDERED: Ondansetron 4 MG/2 ML VIAL ONE (10:10)
[2020-03-07] MEDS ORDERED: Lidocaine -MPF 4% 5 ML AMPUL ONE (10:10)
[2020-03-07] MEDS ORDERED: Ropivacaine/PF 0.5% 30 ML VIAL ONE (10:23)
[2020-03-07] MEDS ORDERED: ROPIVACAINE/PF/NS 0.25% 1 EACH SYRINGE INTRAART ONE (10:23)
[2020-03-07] MEDS ORDERED: Vancomycin 1,000 MG VIAL ONE (10:59)
[2020-03-07] MEDS ORDERED: Ethanol\\Acetic Acid\\Na Ace\\Ben 1,000 ML IRRIG.SOLN IR ONE (10:59)
[2020-03-07] MEDS ORDERED: EPHEDrine 50 MG/ML VIAL ONE (11:22)
[2020-03-07] MEDS ORDERED: *HR* PHENYLEPHRINE 1,000 MCG/10 ML SYRINGE IVP ONE (11:33)
[2020-03-07] MEDS ORDERED: *HR* Rocuronium Bromide 50 MG/5 ML VIAL ONE (12:01)
[2020-03-07 13:03] LABS: Hematocrit 46.8 % (37.5-50.1); Hemoglobin 15.7 g/dL (12.9-16.9)
[2020-03-07] MEDS ORDERED: D5% in Water 1,000 ML IVC PRN (13:32)
[2020-03-07] MEDS ORDERED: Naloxone 0.4 MG/ML INJ IVP PRN (13:32)
[2020-03-07] MEDS ORDERED: Ondansetron 4 MG/2 ML VIAL IVP PRN (13:32)
[2020-03-07] MEDS ORDERED: *HR* Dextrose 50 % in Water (Vial) 50 ML VIAL IVP PRN (13:32)
[2020-03-07] MEDS ORDERED: *HR* OxyCODONE/APAP 5/325 TABLET PO PRN (13:32)
[2020-03-07] MEDS ORDERED: MOM Conc 10 ML UD.LIQ PO PRN (13:32)
[2020-03-07] MEDS ORDERED: Dextrose Gel 15 GM/37.5 ML TUBE PO PRN ×2 (13:32)
[2020-03-07] MEDS ORDERED: Sennosides 8.6 MG TABLET PO PRN (13:32)
[2020-03-07] MEDS: Insulin LISPRO 300 UNITS/3 ML VIAL SQ SCH ×2 (15:11→17:01)
[2020-03-07] MEDS ORDERED: *HR* Enoxaparin 40 MG/0.4 ML SYRINGE SQ SCH (15:45)
[2020-03-07] MEDS ORDERED: CeFAZolin 2 GM/120 ML BAG IVPB SCH (16:00)
[2020-03-07 16:22] VITALS: BP 118/69
[2020-03-07] MEDS ORDERED: *HR* Enoxaparin 30 MG/0.3 ML SYRINGE SQ SCH ×2 (18:00)
[2020-03-07] MEDS ORDERED: *HR* Warfarin 5 MG TABLET PO SCH ×2 (18:00)
[2020-03-07] MEDS ORDERED: Insulin LISPRO 300 UNITS/3 ML VIAL SQ SCH (21:00)
[2020-03-07] MEDS ORDERED: DilTIAZem SR (12hr) 60 MG CAP.ER.12H PO ONE (21:00)
[2020-03-08] MEDS ORDERED: Gabapentin 300 MG CAPSULE PO SCH (09:00)
[2020-03-08] MEDS ORDERED: DilTIAZem CD (24hr) 120 MG CAP.ER.24H PO SCH (09:00)
[2020-03-08] MEDS ORDERED: *HR* Warfarin 5 MG TABLET PO SCH (18:00)
[2020-03-10] MEDS ORDERED: *HR* Warfarin 5 MG TABLET PO SCH (16:26)
[2020-03-10] MEDS ORDERED: *HR* Warfarin 2.5 MG TABLET PO SCH (18:00)
== END 2020-03-07 18:00 | disposition home health service (06) | DRG 483 ==
LOC: SAMDAY 09:15 → 3NENU 13:32
PROVIDERS: ADMIT Orthopaedic Surgery; ATTEND Orthopaedic Surgery